=== PATIENT | female | born 1945 | race Caucasian/White ===

== ENCOUNTER 2019-12-08 08:54 | Day surgery (SDC) | payer OTHER ==
[2019-12-04 09:50] VITALS: BMI 21.2
[2019-12-08 09:15] VITALS: TEMP 98.6
[2019-12-08 10:47] VITALS: BP 109/62; PULSE 79
--- NOTE | 2019-12-11 16:48 | PATH ---
Surgical Pathology Report Patient Name: KATHY LEIJA [facility]. Rec. #: [id number] /Age/Gender: 1945 (Age: 73) / F Account: [id number] Location: [facility] Taken: 12/08/2019 Received: 12/08/2019 Reported: 12/11/2019 Physicians: Ryland Jeffrey M.D. Specimen(s) Received A: DUODENUM B: ANTRUM Clinical History Difficulty swallowing Postoperative diagnosis: Gastritis Final Diagnosis A. DUODENUM, BIOPSY: DUODENAL MUCOSA WITH NO PATHOLOGIC FINDINGS. B. 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 IMMUNOSTAIN IS NEGATIVE FOR H. PYLORI ORGANISMS. Electronically Signed Eden Guerra M.D. Gross Description A. Received in formalin, labeled "duodenum" are 2 llanes, irregular portions of soft tissue measuring 0.3 and 0.4 cm. in greatest dimension. The specimens are submitted in toto in one cassette. B. Received in formalin, labeled "antrum" are 2 llanes, irregular portions of soft tissue measuring 0.3 and 0.4 cm. in greatest dimension. The specimens are submitted in toto in one cassette. 12/09/2019 [facility]12/09/2019
== END 2019-12-08 11:00 | disposition home or self-care (01) ==
LOC: FASU-ENDO 08:54
PROVIDERS: ATTEND Internal Medicine Gastroenterology
PROC: 0DB68ZX Excision of Stomach, Via Natural or Artificial Opening Endoscopic, Diagnostic (ICD-10-PCS; 2019-12-08)
PROC: 0D748DZ Dilation of Esophagogastric Junction with Intraluminal Device, Via Natural or Artificial Opening Endoscopic (ICD-10-PCS; 2019-12-08)
PROC: 0DB98ZX Excision of Duodenum, Via Natural or Artificial Opening Endoscopic, Diagnostic (ICD-10-PCS; principal; 2019-12-08 10:03)
DX: K29.50 Unspecified chronic gastritis without bleeding (principal); K31.9 Disease of stomach and duodenum, unspecified; R13.10 Dysphagia, unspecified; R12 Heartburn
CPT/HCPCS: 88305-TC; 88342-TC